=== PATIENT | female | born 1975 | race Caucasian/White ===

== ENCOUNTER 2016-04-10 22:47 | Emergency (ER) | payer OTHER ==
--- NOTE | 2016-04-11 00:24 | ED ORDER SUMMARY ---
..... Patient: JOSIAH NEFF OrderSheet [facility] VisitID: [id number] [place] [address] 41y, F Registration Date/Time: 04/10/2016 ORDER SHEET Weight: 54.4 kg (stated) Allergies: Eggs or Egg-derived Products GENERAL ORDERS: Ice (to legs.) (23:22 04/10/2016 Cheng LEE) (Ack 23:22 Adrian R.N.) (23:40 Adrian R.N.) Wrist 3 or 4V Right Urgent (23:22 04/10/2016 Cheng LEE) (Ack 23:28 Tonya ER Motor Equipment Sergeant) (23:45 RFay) PT with INR Urgent (23:04/10/2016 Cheng LEE) (Ack 23:28 Tonya ER Motor Equipment Sergeant) (23:39 Dez R.N.) MEDICATION ORDERS: IV FLUIDS: ORDER SHEET NOTES: [Electronically signed by Darrel Briggs R.N. (00:39 04/11/2016)] [Electronically signed by Sahil Flaherty MD (11:50 04/14/2016)] [Electronically locked/signed by Darrel Briggs R.N. (00:39 04/11/2016)]
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
--- NOTE | 2016-04-11 00:24 | ED ORDER SUMMARY ---
..... Patient: JOSIAH NEFF OrderSheet [facility] VisitID: [id number] [place] [address] 41y, F Registration Date/Time: 04/10/2016 ORDER SHEET Weight: 54.4 kg (stated) Allergies: Eggs or Egg-derived Products GENERAL ORDERS: Ice (to legs.) (23:22 04/10/2016 Cheng LEE) (Ack 23:22 Adrian R.N.) (23:40 Adrian R.N.) Wrist 3 or 4V Right Urgent (23:22 04/10/2016 Cheng LEE) (Ack 23:28 Tonya ER Mailroom Supervisor) (23:45 RFay) PT with INR Urgent (23:04/10/2016 Cheng LEE) (Ack 23:28 Tonya ER Mailroom Supervisor) (23:39 Dez R.N.) MEDICATION ORDERS: IV FLUIDS: ORDER SHEET NOTES: [Electronically signed by Darrel Briggs R.N. (00:39 04/11/2016)] [Electronically signed by Sahil Flaherty MD (11:50 04/14/2016)] [Electronically locked/signed by Darrel Briggs R.N. (00:39 04/11/2016)]
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
--- NOTE | 2016-04-14 11:50 | ED MED RECONCILIATION SUMMARY ---
Patient: JOSIAH NEFF Medication Reconciliation Report [facility] VisitID: [id number] [address] [place] [address] 41y, F Registration Date/Time: 04/10/2016 Weight: 54.4 kg Height/Length: 64 in. BMI: 20.6 ALLERGIES: Eggs or Egg-derived Products The patient's Home Medications are listed below: CONTINUE TAKING THE FOLLOWING MEDICATIONS: Amoxicillin Oral Coumadin Oral Propranolol HCl CR Oral 10mg, daily Vicodin Oral The source(s) of the original Home Medication information: patient The following Medications were given to the patient in the Emergency Department: None. The following Medications were prescribed to the patient: None.
--- NOTE | 2016-04-14 11:50 | ED MAR SUMMARY ---
..... Medication Administration Record [facility] [address] [place], [place] [id number] Patient: JOSIAH NEFF Visit ID: [id number] 41y, F Weight: 54.4 kg Height/Length: 64 in BMI: 20.6 ALLERGIES: Eggs or Egg-derived Products
--- NOTE | 2016-04-14 11:50 | ED MED RECONCILIATION SUMMARY ---
Patient: JOSIAH NEFF Medication Reconciliation Report [facility]ly [facility] VisitID: [id number] [address] [place] [place] [address] 41y, F Registration Date/Time: 04/10/2016 Weight: 54.4 kg Height/Length: 64 in. BMI: 20.6 ALLERGIES: Eggs or Egg-derived Products The patient's Home Medications are listed below: CONTINUE TAKING THE FOLLOWING MEDICATIONS: Amoxicillin Oral Coumadin Oral Propranolol HCl CR Oral 10mg, daily Vicodin Oral The source(s) of the original Home Medication information: patient The following Medications were given to the patient in the Emergency Department: None. The following Medications were prescribed to the patient: None.
--- NOTE | 2016-04-14 11:50 | ED MAR SUMMARY ---
..... Medication Administration Record [facility] [address] [place], [place] [id number] Patient: JOSIAH NEFF Visit ID: [id number] 41y, F Weight: 54.4 kg Height/Length: 64 in BMI: 20.6 ALLERGIES: Eggs or Egg-derived Products
== END 2016-04-11 00:39 | disposition home or self-care (01) ==
LOC: ED SRH 22:47
DX: S80.11XA Contusion of right lower leg, initial encounter (principal); Z79.891 Long term (current) use of opiate analgesic; S80.12XA Contusion of left lower leg, initial encounter; V09.00XA Pedestrian injured in nontraffic accident involving unspecified motor vehicles, initial encounter; Y92.512 Supermarket, store or market as the place of occurrence of the external cause; Y99.0 Civilian activity done for income or pay; Y93.89 Activity, other specified; I48.91 Unspecified atrial fibrillation; Z79.01 Long term (current) use of anticoagulants; Z79.899 Other long term (current) drug therapy